=== PATIENT | female | born 1965 | race Caucasian/White ===

== ENCOUNTER → 2018-05-24 | Outpatient (REF) | payer OTHER ==
[2018-05-24 10:45] LABS: PLATELET COUNT, AUTOMATED 352 K/uL (150-450)
== END ==
PROVIDERS: ATTEND Family Medicine
DX: M79.605 Pain in left leg (principal)
CPT/HCPCS: 82040; 82247; 82310; 82374; 82435; 82565; 82947; 84075; 84132; 84155; 84295; 84450; 84460; 84520; 85025; 85379; 86140

== ENCOUNTER → 2018-06-14 | Outpatient (CLI) | payer OTHER ==
[2018-06-14 14:29] LABS: PLATELET COUNT, AUTOMATED 387 K/uL (150-450)
--- NOTE | 2018-06-14 17:31 | EKG ---
FACILITY: [facility] PATIENT NAME: SKYLAR GONZALES : [id number] MR: [id number] V: [id number] EXAM DATE: ORDERING PHYSICIAN: IGGY NUÑEZ TECHNOLOGIST: HOLLY Test Reason : PREOP Blood Pressure : / mmHG Vent. Rate : 082 BPM Atrial Rate : 082 BPM P-R Int : 184 ms QRS Dur : 098 ms QT Int : 398 ms P-R-T Axes : 054 -12 037 degrees QTc Int : 464 ms Normal sinus rhythm Normal ECG No previous ECGs available Referred By: Confirmed By:
== END ==
LOC: LAB 13:56
PROVIDERS: ATTEND Internal Medicine
DX: Z01.818 Encounter for other preprocedural examination (principal)
CPT/HCPCS: 36415; 81001; 82040; 82247; 82310; 82374; 82435; 82565; 82947; 84075; 84132; 84155; 84295; 84443; 84450; 84460; 84520; 85025

== ENCOUNTER 2018-06-29 01:05 | Inpatient (IN) | payer OTHER ==
--- NOTE | 2018-06-28 11:03 | LEVENE H&P ---
DATE OF ADMISSION: June 29, 2018 IDENTIFICATION/CHIEF COMPLAINT Gloria is a 53-year-old woman with a chief complaint of left knee pain. HISTORY OF PRESENT ILLNESS Patient has a longstanding history of knee arthritis, progressively painful and debilitating and refractory to conservative care. Surgery is indicated to relieve symptoms after failure of nonoperative measures. PAST MEDICAL HISTORY 1. Remote history of bronchitis and pneumonia. 2. Osteoarthritis. PAST SURGICAL HISTORY 1. x3. 2. Neck surgery. 3. Knee surgery. 4. Cholecystectomy. ALLERGIES TRAMADOL, causes rash. CURRENT MEDICATIONS She takes no prescription medicine on a daily basis. SOCIAL HISTORY Negative for tobacco and alcohol use. Denies drug abuse. FAMILY HISTORY Notable for a mother with breast cancer and low thyroid. Father with hypertension and lung cancer. REVIEW OF SYSTEMS Otherwise negative. PHYSICAL EXAMINATION GENERAL: This is a healthy female. HEENT: Normocephalic, atraumatic. NECK: Supple. LUNGS: Clear. HEART: Regular ABDOMEN: Soft. ORTHOPEDIC EXAMINATION The knee has crepitus. Effusion is present. Extensor function is intact. Gross stability is good. She is stiffened on range. Skin condition is good. Calves are nontender. Neurovascular function is intact distally. Radiographs demonstrate end-stage knee arthritis. ASSESSMENT Left knee end-stage degenerative joint disease, progressively painful and debilitating and refractory to conservative care. PLAN Per patient's request, we will proceed with left total knee arthroplasty. The nature of the procedure, the risks, benefits and the anticipated rehabilitative course were outlined. Risks of the procedure include, but are not limited to, , major medical or anesthetic complication, infection, neurovascular injury, blood transfusion, stiffness, scarring, fracture, tendon rupture, instability, implant loosening, migration or failure, persistent or recurrent pain or symptoms, need for additional surgery and other unforeseen. She understands and wishes to proceed. A signed permit is placed in the chart. No guarantees are given or implied. [facility]ITALMariam
[2018-06-28 13:50] LABS: INR 0.95
[~2018-06-29] VITALS: Ht 177.8 cm; Wt 97.1 kg
[2018-06-29] VITALS (16 sets, daily range): BP systolic 65–124; BP diastolic 43–87
[2018-06-29] MEDS ORDERED: VANCOMYCIN 1 GM VIAL ONE (06:52)
[2018-06-29] MEDS ORDERED: APREPITANT 40 MG CAP PO ONE (08:00)
[2018-06-29] MEDS ORDERED: MIDAZOLAM 2 MG/2 ML VIAL IVP PRN (08:00)
[2018-06-29] MEDS ORDERED: NORMOSOL R SOLN(*) 1000 ML BAG 1,000 ML IV PRN ×2 (08:00→11:35)
[2018-06-29] MEDS ORDERED: FAMOTIDINE 20 MG TAB PO ONE (08:00)
[2018-06-29] MEDS ORDERED: ceFAZolin(*) 2GM/D5W 50ML 50 ML IVPB ONE (08:00)
[2018-06-29] MEDS ORDERED: ACETAMINOPHEN 500 MG TAB PO ONE (08:00)
[2018-06-29] MEDS ORDERED: LIDOCAINE/SOD BICARB 8.4% SYR ID ONE (08:00)
[2018-06-29] MEDS ORDERED: PREGABALIN 150 MG CAPSULE PO ONE (08:00)
[2018-06-29] MEDS ORDERED: CELECOXIB 200 MG CAP PO ONE (08:00)
[2018-06-29] MEDS ORDERED: TRANEXAMIC AC 1000 MG/10ML SDV 1,000 MG in DEXTROSE 5% 50 ML BAG 50 ML IV ONE (08:00)
[2018-06-29] MEDS ORDERED: ROPIVACAINE/EPI/CLONIDINE/KET 50 ML SYRINGE INJ ONE (08:00)
[2018-06-29] MEDS ORDERED: fentaNYL CITR 100 MCG/2 ML AMP ONE (08:34)
[2018-06-29] MEDS ORDERED: LIDOCAINE MPF 1% 5 ML VIAL ONE (08:34)
[2018-06-29] MEDS ORDERED: KETAMINE HCL-NS 50 MG/5 ML SYR ONE (08:34)
[2018-06-29] MEDS ORDERED: DEXAMETHASONE SOD 4 MG/ML VIAL ONE (08:34)
[2018-06-29] MEDS ORDERED: ONDANSETRON 4 MG/2 ML VIAL ONE ×2 (08:34→10:13)
[2018-06-29] MEDS ORDERED: PROPOFOL EMUL(*) 10MG/ML 20 ML 20 ML ONE (08:34)
[2018-06-29] MEDS ORDERED: ACETAMINOPHEN 325 MG TAB PO PRN (11:35)
[2018-06-29] MEDS ORDERED: ZOLPIDEM TARTRATE 5 MG TAB PO PRN (11:35)
[2018-06-29] MEDS ORDERED: diphenhydrAMINE 25 MG CAP PO PRN (11:35)
[2018-06-29] MEDS ORDERED: BENZOCAINE/MENTHOL 1 EACH LOZG PO PRN (11:35)
[2018-06-29] MEDS ORDERED: FLUSH 10 ML SYR IVP PRN (11:35)
[2018-06-29] MEDS ORDERED: DIAZEPAM 5 MG TAB PO PRN (11:35)
[2018-06-29] MEDS ORDERED: BISACODYL 10 MG SUPP PR PRN (11:35)
[2018-06-29] MEDS ORDERED: PROMETHAZINE 25 MG/ML 1 ML AMP IVP PRN (11:35)
[2018-06-29] MEDS ORDERED: MAGNESIUM HYDROXIDE* 30ML UDCP PO PRN (11:35)
[2018-06-29] MEDS ORDERED: diphenhydrAMINE 50 MG/ML VIAL IVP PRN (11:35)
--- NOTE | 2018-06-29 11:48 | OPERATIVE REPORT 1 ---
EVENT DATE: June 29, 2018 SURGEON: Sanjay Palmer MD ANESTHESIOLOGIST: Antonino Greene MD ANESTHESIA: General plus spinal. FITNESS AND WELLNESS INSTRUCTOR: Dwayne Novoa PA-C PREOPERATIVE DIAGNOSIS Left knee degenerative joint disease. POSTOPERATIVE DIAGNOSIS Left knee degenerative joint disease. PROCEDURE PERFORMED Left total knee arthroplasty. ESTIMATED BLOOD LOSS Minimal. DRAINS None. SPECIMENS None. COMPLICATIONS None apparent. TOURNIQUET TIME 50 minutes. IMPLANTS USED [employer]lon [place] knee system, a 4 left PS femur, 5 standard tibial baseplate, a 33 mm universal symmetric all polyethylene patella button and a 13 mm PS tibial tray liner, polyethylene X3. INDICATIONS Gloria is 53-year-old female with intractable pain related to end-stage knee arthritis. Surgery is indicated to relieve symptoms after failure of nonoperative measures. DESCRIPTION OF PROCEDURE The patient was taken to the operating room and placed supine on the operating table. Spinal block was placed by the anesthesiologist. General anesthesia was induced. Antibiotics and TXA were administered IV. The left lower extremity was prepped and draped in the usual sterile fashion for knee arthroplasty. The limb was exsanguinated with an Esmarch bandage. The tourniquet was inflated to 250 mmHg. A midline longitudinal incision was made and carried down through the skin and subcutaneous tissue to the extensor mechanism. A full-thickness flap was developed far enough medially to allow medial parapatellar arthrotomy to be performed. The patella was everted. The knee was brought into a flexed position. The fat pad, anterior horns of the menisci and cruciate ligaments were debrided. Subperiosteal release was started medially in a titrated fashion to start to balance the knee. A step drill was used to enter the distal femur. A 10-inch long alignment guide was used to engage the isthmus. Cut was set for 6 degrees of valgus relative to the anatomic axis. The 10 mm resection block was applied to distal femur and block was pinned. Cut was made with an oscillating saw. The AP sizing guide was applied to the distal femoral cut and positioned for 3 degrees of external rotation over the posterior condyles. A size 4 was optimal without significant risk of notching. The four-in-one cutting block was applied. Anterior, posterior, posterior chamfer and anterior chamfer cuts were made respectively. A PS block was applied and centered mediolateral and the bone was resected from the box. The trial femur has nice [id number] fit. Attention was turned to tibial preparation. The extramedullary guide was applied and positioned for varus, valgus, posterior slope and rotation. This was set to resect 9 mm from the relatively intact lateral tibial plateau and dropped down 1 to 2 millimeters to ensure an adequate cut. The block was pinned, extramedullary check was made and the cut was made with an oscillating saw. The gaps are sufficient but a posterior bone is removed and the size 5 tibial baseplate provides optimum bony coverage without soft tissue overhang. This was inserted along with a trial liner and trial femur and the knee was brought to full extension. The patella was taken from a starting thickness of 24 to a residual of 14 with a patellar clamp and oscillating saw. A 33 provides optimal bony coverage without soft tissue overhang. The lug holes were drilled. The patella tracts nicely with no-touch technique. Final tibial preparation consisted of ensuring appropriate rotational and translational position of the component. The box was reamed and the fin was punched. Surfaces were lavaged. Drill holes were placed in the hard medial bone to facilitate cement, interdigitation and medial osteophytes resected back to the normal tibial anatomy. A mix of polymethylmethacrylate was made and the components were cemented in a single stage. After the cement was fully polymerized, the tourniquet was deflated and hemostasis was assured. The wounds were copiously lavaged. The 13 PS tibial tray trial fills up the gap and allows the knee to drop to full extension without hyperextension, providing optimal subcutaneous tissue tension stability. The tray was lavaged and dried and the actual liner was locked into the baseplate. The joint was reduced and the arthrotomy was closed in flexion with #2 Ethibond, subcutaneous tissue with 3-0 Vicryl and the skin with a zip tie. The patient has dry sterile dressing applied along with compression wrap. Awakened from the anesthesia and taken to the recovery room in stable condition, having tolerated the procedure well. Plan is for standard TKA rehab protocol. [facility]
--- NOTE | 2018-06-29 11:59 | RADIOLOGY IMAGING REPORT ---
FACILITY: [facility] PATIENT NAME: Gloria Bermudez : 1965 MR: [id number] V: [id number] EXAM DATE: ORDERING PHYSICIAN: JEAN CLAUDE FRYE TECHNOLOGIST: [place] [facility] [place] Gloria Bermudez : 1965 Visit/Account:[id number] Date of Sevice: 06/29/2018 Exam type: 2 views left knee History: Postop left knee arthroplasty Comparison: 05/24/2018. Findings: Postoperative changes are noted from left knee arthroplasty without hardware complication. Air is no lacey within the joint space. IMPRESSION: 1. Postoperative changes noted from left knee arthroplasty without hardware complication. Report Dictated By: Sidney Bhardwaj MD at 06/29/2018 11:54 AM Report E-Signed By: Sidney Bhardwaj MD at 06/29/2018 11:55 AM WSN:[email or web address]
--- NOTE | 2018-06-29 13:10 | Hospitalist Consultation ---
History of Present Illness Requesting Physician Dr. Palmer Reason for Consult Medical Management Chief Complaint s/p left knee replacement History of Present Illness She was admitted s/p left knee replacement. It is reported the surgery went well and without complication. History Home Meds No Active Prescriptions or Reported Meds Allergies: Coded Allergies: No Known Drug Allergies (Unverified , 06/22/18) Patient History: FH: breast cancer MOTHER FH: hyperlipidemia FATHER, , Age:82 FH: hypertension FATHER, , Age:82 FH: hypothyroidism MOTHER FH: lung cancer FATHER, , Age:82 Hx Smoking: No Smoking Status: Never Smoker Caffeine Intake: Tea Caffeine/Cups Per Day: 4-5 GLASSES OF SWEET TEA DAILY Hx Alcohol Use: Yes Hx Substance Use Disorder: No Social Drug Use: Never Review of Systems All Systems Reviewed/Normal: Yes, Except as Noted Exam Vital Signs Vital Signs Date Time Temp Pulse Resp B/P (MAP) Pulse Ox O2 Delivery O2 Flow Rate FiO2 06/29/18 12:55 97.0 78 18 111/63 (79) 97 Nasal Cannula 1.0 General Appearance: Alert, Awake, No Acute Distress, Afebrile Neuro: No Gross deficits Cardiovascular: Regular Rate and Rhythm Respiratory: No Respiratory Distress, Clear to Auscultation GI: Abd Soft and Non-Tender Psych: Alert & Oriented X3, Appropriate Mood & Affect Assessment and Plan Problems: (1) Status post left knee replacement Status: Acute Assessment & Plan: Followed by Dr. Palmer. She will be placed on Aspirin for DVT prophylaxis. She has no history of DVT or PE. Hospitalist will follow patient for any medical needs throughout admission. Venous Thromboembolism Antithrombotics Is Pt On Any Antithrombotics?: No KATHY CABRAL Jun 29, 2018 13:10
--- NOTE | 2018-06-29 15:08 | NUR ---
Physical Therapy Impression PT eval completed as well as treatment for [id number] to [facility] with Min assist from PT due to weakness and poor coordination/sensation. Pt was then fit with CPM and briefly instructed in self progression with flexion as tolerated. Pt very drowsy and this will be reviewed again tomorrow. Physical Therapy Goals 1. Pt to be Modified indep with bed mobility and supine<>sit trnsfrs 2. Pt to be Modified indep with sit <>stand transfers 3. Pt to be Modified indep with ambulation x 100' with least restrictive device 4. Pt to radha up/down 4 steps with rail and SBA/CGA Patient's Goals
[2018-06-29] MEDS: ceFAZolin(*) 1 GM VIAL 1 GM in NS(*) 0.9% 100 ML ADDVANT BAG 100 ML IVPB SCH (17:05)
[2018-06-29] MEDS: CELECOXIB 200 MG CAP PO SCH (17:11)
[2018-06-29] MEDS: APAP/HYDROCODONE 325/7.5 TAB PO PRN ×2 (18:41→22:46)
[2018-06-30] MEDS: ceFAZolin(*) 1 GM VIAL 1 GM in NS(*) 0.9% 100 ML ADDVANT BAG 100 ML IVPB SCH ×2 (00:39→09:12)
[2018-06-30 02:16] VITALS: BP 89/54
[2018-06-30 03:00] VITALS: BP 89/53
[2018-06-30 04:00] VITALS: BP 88/44
[2018-06-30 07:22] VITALS: BP 99/58
[2018-06-30] MEDS: CELECOXIB 200 MG CAP PO SCH ×2 (09:11→17:00)
[2018-06-30] MEDS: ASPIRIN 325 MG TAB PO SCH (09:11)
[2018-06-30 09:19] LABS: PLATELET COUNT, AUTOMATED 311 K/uL (150-450)
[2018-06-30 10:47] VITALS: Ht 177.8 cm; Wt 97.1 kg
--- NOTE | 2018-06-30 11:00 | NUR ---
Physical Therapy Impression Pt tolerated bed mobility with CGA/Min assist, and ambulation with FWW x 150' with CGA/SBA. Pt required O2 during treatment session to maintain sats in safe range. Physical Therapy Goals 1. Pt to be Modified indep with bed mobility and supine<>sit trnsfrs 2. Pt to be Modified indep with sit <>stand transfers 3. Pt to be Modified indep with ambulation x 100' with least restrictive device 4. Pt to radha up/down 4 steps with rail and SBA/CGA Patient's Goals
--- NOTE | 2018-06-30 11:03 | Hospitalist Progress Note ---
Subjective Progress Notes Subjective She was admitted s/p knee replacement. She had lower blood pressures overnight, however she never was symptomatic. She does appear pale today, she reports she does have anemia issues. She has never required transfusions, but has been asked to take iron in the past. Patient Complains of: Cardiovascular: No: Chest Pain Respiratory: No: Shortness of Breath Physical Exam Vital Signs Date Time Temp Pulse Resp B/P (MAP) Pulse Ox O2 Delivery O2 Flow Rate FiO2 06/30/18 07:30 92 Nasal Cannula 1.0 06/30/18 07:22 97.9 48 14 99/58 (72) Intake and Output 06/30/18 07:00 Intake Total 4420 ml Balance 4420 ml Intake Oral 920 ml IV Total 1800 ml Other 1700 ml # Voids 6 General Appearance: Alert, Awake, No Acute Distress, Afebrile Neuro: No Gross deficits Cardiovascular: Regular Rate and Rhythm Respiratory: No Respiratory Distress, Clear to Auscultation Extremities: Other (appears pale) Psych: Alert & Oriented X3, Appropriate Mood & Affect Result Diagram: 06/30/18 0902 Assessment and Plan Problems: (1) Status post left knee replacement Status: Acute Assessment & Plan: Followed by Dr. Palmer. She will be placed on Aspirin for DVT prophylaxis. She has no history of DVT or PE. Hospitalist will follow patient for any medical needs throughout admission. (2) Iron deficiency anemia Status: Chronic Assessment & Plan: She had labs checked post-operatively. Iron at lower end of normal. She reports she will take iron with Vitamin C when she returns home. She prefers to wait to start until her stomach can handle iron. Exam Sepsis Risk: No Definite Risk KATHY CABRALP Jun 30, 2018 11:03
[2018-06-30] MEDS: APAP/HYDROCODONE 325/7.5 TAB PO PRN ×4 (11:25→22:18)
[2018-06-30 11:26] VITALS: BP 95/46
--- NOTE | 2018-06-30 17:40 | NUR ---
Physical Therapy Impression Pt completed trng with crutches and notes that she does feel more secure with FWW and plans to obtain one for home use. Pt demos proper safety awareness with both devices including with ambulation and up/down platform step. Physical Therapy Goals 1. Pt to be Modified indep with bed mobility and supine<>sit trnsfrs 2. Pt to be Modified indep with sit <>stand transfers 3. Pt to be Modified indep with ambulation x 100' with least restrictive device 4. Pt to radha up/down 4 steps with rail and SBA/CGA Patient's Goals
[2018-06-30 18:55] VITALS: BP 107/56
[2018-07-01] MEDS: APAP/HYDROCODONE 325/7.5 TAB PO PRN ×3 (05:06→15:01)
[2018-07-01 07:00] VITALS: BP 89/50
[2018-07-01] MEDS: CELECOXIB 200 MG CAP PO SCH ×2 (08:08→17:06)
[2018-07-01] MEDS: ASPIRIN 325 MG TAB PO SCH (08:08)
[2018-07-01] MEDS ORDERED: HYDR-654 PO (08:35)
[2018-07-01] MEDS ORDERED: DIAZ-308 PO (08:36)
[2018-07-01] MEDS ORDERED: ASPI-757 PO (08:38)
--- NOTE | 2018-07-01 10:55 | Hospitalist Progress Note ---
Subjective Progress Notes Subjective She was admitted after knee replacement. She has no complaints this morning. She had no acute events overnight. Patient Complains of: Cardiovascular: No: Chest Pain Respiratory: No: Shortness of Breath Physical Exam Vital Signs Date Time Temp Pulse Resp B/P (MAP) Pulse Ox O2 Delivery O2 Flow Rate FiO2 07/01/18 09:00 83 07/01/18 08:00 Nasal Cannula 1.0 07/01/18 07:00 97.8 63 18 89/50 (63) Intake and Output 07/01/18 07:00 Intake Total 470 ml Balance 470 ml Intake Oral 340 ml IV Total 130 ml # Voids 7 General Appearance: Alert, Awake, No Acute Distress, Afebrile Neuro: No Gross deficits Cardiovascular: Regular Rate and Rhythm Respiratory: No Respiratory Distress, Clear to Auscultation GI: Soft and Non-Tender Psych: Alert & Oriented X3, Appropriate Mood & Affect Result Diagram: 06/30/18 0902 Assessment and Plan Problems: (1) Status post left knee replacement Status: Acute Assessment & Plan: Followed by Dr. Palmer. She will be placed on Aspirin for DVT prophylaxis. She has no history of DVT or PE. Hospitalist will follow patient for any medical needs throughout admission. (2) Iron deficiency anemia Status: Chronic Assessment & Plan: She had labs checked post-operatively. Iron at lower end of normal. She reports she will take iron with Vitamin C when she returns home. She prefers to wait to start until her stomach can handle iron. Exam Sepsis Risk: No Definite Risk KATHY CABRAL Jul 01, 2018 10:55
[2018-07-01 12:20] VITALS: BP 108/65
[2018-07-01 15:01] VITALS: BP 118/67
== END 2018-07-01 17:20 | disposition home or self-care (01) | DRG 470 ==
LOC: OR 01:05 → INTOOBSV 12:40 → UNDOADMOB 12:40 → MED 12:40 → OBSVTOIN 12:40
PROVIDERS: ADMIT Orthopaedic Surgery; ATTEND Orthopaedic Surgery
PROC: 0SRD0J9 Replacement of Left Knee Joint with Synthetic Substitute, Cemented, Open Approach (ICD-10-PCS; principal; 2018-06-29 08:58)
DX: M17.12 Unilateral primary osteoarthritis, left knee (principal); D50.9 Iron deficiency anemia, unspecified; E66.8 Other obesity; Z68.30 Body mass index [BMI] 30.0-30.9, adult; Z90.49 Acquired absence of other specified parts of digestive tract
CPT/HCPCS: 36415; 82728; 83540; 83550; 85025; 85610; 86850; 86900; 86901; 97161; C1713; C1776; J0690; J1100; J2001; J2250; J2405; J2704; J3010; J3370; J3490; J7050; J7060; J8501

== ENCOUNTER 2018-07-08 17:00 | Outpatient (RCR) | payer OTHER ==
[2018-06-30 10:47] VITALS: BMI 30.7
--- NOTE | 2018-07-07 08:39 | PT INITIAL EVALUATION ---
MEDICAL DIAGNOSIS: L TKA TREATMENT DIAGNOSIS: same, altered gait DATE OF ONSET: 06/29/18 SUBJECTIVE: Gloria presents to physical therapy status post L knee TKA on the June. She reports that she been utilizing the CPM daily and keeping her leg straight as much as possible. She rates her current pain to be 5/10. She also reports that she has not been putting a pillow directly under her knee. Furthermore, she reports that she has been elevating and icing often throughout the day. She reports that she will have her zipline removed on Thursday. She denies fever, chills, redness, or any symptoms of infection. She reports that she has been performing ankle pumps and glute squeezes. Pain location is L knee and described as swelling tightness. Pain scale is 5 on a ten point pain scale. 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 She demonstrated no signs or symptoms of infection with the incision healing well. Posture: She demonstrates forward head, B rounded shoulders, increased thoracic kyphosis, and decreased lumbar lordosis. ROM: AROM of L Knee: 25 degrees from 0 to 65 degrees of flexion. PROM of L knee: 10 degrees from 0 and 75 degree of flexion Strength: Did not test due to recent surgical intervention Palpation: TTP: surrounding L knee Special Tests: 25 degrees of quad lag Mobility: Modified independent Gait: With FWW, she demonstrated the following gait mechanics: increased heel strike, decreased push off, increased base of support, decreased pelvic rotation, decreased R step length, and antalgic gait that resulted in decreased knee extension and flexion. Balance: Will test in the future ASSESSMENT: Gloria will benefit from skilled physical therapy addressing the listed impairments to improve function and QOL. We instructed her to work extremely hard on her extension to improve and maintain that motion as quickly as possible or else this rehab will be long and painful. Otherwise, she is independent with her HEP. Short Term Goals 2 weeks: Pt will demonstrate ability to transition from FWW to cane to improve function and QOL. 4 weeks: Pt will demonstrate full L knee from baseline to 0-130 degrees to improve function and QOL. 4 weeks: Pt will demonstrate ability to transition from cane to independent to improve function and QOL. 8 weeks: Pt will demonstrate increased strength from baseline to 4+/5 in core and B LE's to improve function and QOL. Patient's Goals improve motion, decrease pain, and increase strength PLAN: Patient to be seen for Manual Therapy/STM/MET Strengthening/condition Ice/Heat Range of Motion Spinal Stabilization Work Hardening/Cond Stretching Iontophoresis Neuromuscular Re-ed Closed Chain Program Electrical Stim Posture/Body mechanics Gait Trg/Balance Trg Home Exercise Program Therapeutic Activities 2-3x/week for 2 Months If you have any questions, comments, or concerns about this report or plan, please contact me at . Thank you, Jim Cordero, PT, DPT MTDD
[~2018-07-08 17:00] MED LIST: ASPI-757 PO; DIAZ-308 PO; HYDR-654 PO
== END 2018-07-08 18:00 | disposition home or self-care (01) ==
LOC: PT 17:00
PROVIDERS: ATTEND Orthopaedic Surgery
DX: Z47.1 Aftercare following joint replacement surgery (principal); Z96.652 Presence of left artificial knee joint
CPT/HCPCS: 97161